=== PATIENT | female | born 1930 | race Caucasian/White ===

== ENCOUNTER 2016-11-12 10:37 | Outpatient (CLI) | payer MEDICARE, OTHER ==
[2015-05-28 06:50] VITALS: BP 147/95
== END 2016-11-12 10:47 ==
LOC: POD 10:37
PROVIDERS: ATTEND Podiatrist Public Medicine
DX: B35.1 Tinea unguium (principal); B35.3 Tinea pedis; L84 Corns and callosities; M79.674 Pain in right toe(s); M79.675 Pain in left toe(s)
CPT/HCPCS: 11721; G0463

== ENCOUNTER 2016-12-15 11:13 | Outpatient (CLI) | payer MEDICARE, OTHER ==
[2015-05-28 06:50] VITALS: BP 147/95
[2016-12-15 12:40] LABS: eGFR (African) 34; eGFR (Non-African) 28
--- NOTE | 2016-12-15 20:01 | Diagnostic Imaging Report ---
Report Submission Date: Dec 15, 2016 3:03:47 PM CDT Patient ~ Study Name: DAVID CONKLIN ~ Date: Dec 15, 2016 11:32:36 AM CDT ~ Modality Type: CR Gender: F ~ Description: CHEST : 34 ~ Institution: [facility] Physician: ALANNA AMBROSIO ~ ~ ~ ~ 2 views of the chest History: RT POSTERIOR CHEST/BACK PAIN ON EXERTION X2-3 MONTHS Findings: No comparison studies Mild cardiomegaly with aortic calcification There is mild pulmonary vascular congestion Minimal bibasilar atelectasis. Of possible hiatal hernia. The Degenerative changes are noted at the shoulders Impression: Cardiomegaly with mild pulmonary vascular congestion Bibasal atelectasis. Hiatal hernia is questioned ~ Electronically signed on Dec 15, 2016 3:03:47 PM CDT by: Leola ROSE
== END 2016-12-15 11:14 ==
LOC: RAD 11:13
PROVIDERS: ATTEND Family Medicine
DX: M54.5 Low back pain (principal); M54.9 Dorsalgia, unspecified; E78.2 Mixed hyperlipidemia; E03.9 Hypothyroidism, unspecified
CPT/HCPCS: 36415; 71020; 80053; 80061; 84443

== ENCOUNTER 2017-02-24 09:41 | Outpatient (CLI) | payer MEDICARE, OTHER ==
[2015-05-28 06:50] VITALS: BP 147/95
--- NOTE | 2017-02-24 17:22 | Diagnostic Imaging Report ---
[facility] [address] [facility] [id number] Report Submission Date: Feb 24, 2017 10:45:18 AM CDT Patient Study Name: DAVID CONKLIN Date: Feb 24, 2017 9:57:37 AM CDT Modality Type: US Gender: F Description: DUPLEX AORTA VC ILIAC LIMIT [id number] : 34 Institution: [facility] Physician: ALANNA AMBROSIO - MAXIM Examination: Ultrasound aorta History: Evaluate for aneurysm Comparison exams: None available Findings: Proximal aorta measures 2.0 cm maximally. Mid aorta measures 2.8 cm maximally. Distal aorta measures 1.6 cm maximally. Iliac vessels measure 1.1 cm. No peripheral calcification or thrombus. Supra celiac axis aorta not well visualized. Impression: Mid aortic prominence to 2.8 cm. Supra celiac axis aorta not well visualized on ultrasound examination. Correlate with any previous examinations. Better evaluation can be obtained with CT scan. Electronically signed on Feb 24, 2017 10:45:18 AM CDT by: Hugo ROSE
== END 2017-02-24 12:37 ==
LOC: RAD 09:41
PROVIDERS: ATTEND Family Medicine
DX: I71.4 Abdominal aortic aneurysm, without rupture (principal)
CPT/HCPCS: 93979

== ENCOUNTER 2017-10-07 13:58 | Outpatient (CLI) | payer MEDICARE, OTHER ==
[2015-05-28 06:50] VITALS: BP 147/95
== END 2017-10-07 14:00 ==
LOC: LAB 13:58
PROVIDERS: ATTEND Family Medicine
DX: E03.9 Hypothyroidism, unspecified (principal)
CPT/HCPCS: 36415; 84443

== ENCOUNTER 2018-12-09 13:16 | Outpatient (CLI) | payer MEDICARE, OTHER ==
[2015-05-28 06:50] VITALS: BP 147/95
[2018-12-09 14:14] LABS: BASOPHILS % 0.5 % (0.0-1.5); EOSINOPHILS % 2.7 % (0.0-6.8); MEAN CORPUSCULAR HEMOGLOBIN 30.6 pg (28.0-34.0); MONOCYTES % 6.9 % (0.0-11.0); NEUTROPHILS # 3.6 # k/uL (1.4-7.7)
[2018-12-09 14:38] LABS: eGFR (Non-African) 30
== END 2018-12-09 13:18 ==
LOC: LAB 13:16
PROVIDERS: ATTEND Family Medicine
DX: I10 Essential (primary) hypertension (principal); E03.9 Hypothyroidism, unspecified
CPT/HCPCS: 36415; 80053; 80061; 84443; 85025

== ENCOUNTER 2019-09-21 17:17 | Outpatient (CLI) | payer MEDICARE, OTHER ==
[2015-05-28 06:50] VITALS: BP 147/95
== END 2019-09-21 17:30 ==
LOC: LABRHC 17:17
PROVIDERS: ATTEND Family Medicine
DX: E78.5 Hyperlipidemia, unspecified (principal); E03.9 Hypothyroidism, unspecified
CPT/HCPCS: 80053; 80061; 84443